=== PATIENT | male | born 1965 | race Caucasian/White ===

== ENCOUNTER → 2017-09-01 | Outpatient (CLI) | payer BC ==
[~2017-09-01] MED LIST: SYNUNK; cholesterol pill
[2017-09-01 14:13] LABS: ALT/SGPT 34 U/L (12-78); BLOOD UREA NITROGEN 12 mg/dl (7-18); BUN/CREATININE RATIO 11.9 (10-20); CALCIUM 8.7 mg/dl (8.5-10.1); CARBON DIOXIDE 29 mmol/L (21-32); CHLORIDE 105 mmol/L (98-107); CHOLESTEROL 259 mg/dl (0-200); CREATININE 0.98 mg/dl (0.60-1.40); GLUCOSE 106 mg/dl (70-99); SODIUM 139 mmol/L (136-145)
[2017-09-01 14:19] LABS: CHOLESTEROL/HDL RATIO 5.6; HDL CHOLESTEROL 46 mg/dl; LDL CHOLESTEROL CALCULATED 172 mg/dl; PROSTATE SPECIFIC ANTIGEN 0.798 ng/ml (0.000-4.000); TRIGLYCERIDES 203 mg/dl (0-150); VERY LOW DENSITY LIPOPROT CALC 41 mg/dl
[2017-09-01 14:23] LABS: LYME DISEASE AB IGG NEG (NEG); LYME DISEASE AB IGM NEG (NEG)
== END | disposition home or self-care (01) ==
LOC: C.LABMFLN 08:01
PROVIDERS: ATTEND Family Medicine
DX: E03.9 Hypothyroidism, unspecified (principal); E78.00 Pure hypercholesterolemia, unspecified; Z12.5 Encounter for screening for malignant neoplasm of prostate; W57.XXXA Bitten or stung by nonvenomous insect and other nonvenomous arthropods, initial encounter